=== PATIENT | female | born 1985 ===

== ENCOUNTER → 2019-11-13 08:02 | Outpatient (CLI) | payer OTHER | END | disposition home or self-care (01) | LOC: LAB 08:02 | PROVIDERS: ATTEND Obstetrics & Gynecology | DX: E03.8 Other specified hypothyroidism (principal); Z00.00 Encounter for general adult medical examination without abnormal findings; I10 Essential (primary) hypertension; E78.00 Pure hypercholesterolemia, unspecified; N39.0 Urinary tract infection, site not specified; Z11.4 Encounter for screening for human immunodeficiency virus [HIV]; E55.9 Vitamin D deficiency, unspecified; Z21 Asymptomatic human immunodeficiency virus [HIV] infection status; R79.89 Other specified abnormal findings of blood chemistry ==

== ENCOUNTER 2021-04-12 11:48 | Outpatient (CLI) | payer OTHER | END 2021-04-12 12:07 | disposition home or self-care (01) | LOC: RAD 11:48 | PROVIDERS: ATTEND Orthopaedic Surgery | DX: M50.00 Cervical disc disorder with myelopathy, unspecified cervical region (principal); M50.10 Cervical disc disorder with radiculopathy, unspecified cervical region ==